=== PATIENT | male | born 1975 | race Caucasian/White ===

== ENCOUNTER 2020-04-02 07:38 | Emergency (ER) | payer OTHER ==
[~2020-04-02] VITALS: Ht 190.5 cm; Wt 99.8 kg
[2020-04-02] MEDS ORDERED: CYMBALTA60 MG PO (07:55)
[2020-04-02] MEDS ORDERED: MIRTAZAPINE30 M1 PO (07:55)
[2020-04-02] MEDS ORDERED: GLIPIZIDE ER10 MG PO (07:56)
[2020-04-02] MEDS ORDERED: LIPITOR40 MG PO (07:56)
[2020-04-02] MEDS ORDERED: FENOFIBRATE145 MG PO (07:56)
[2020-04-02] MEDS ORDERED: MOBIC15 MG PO (07:57)
[2020-04-02] MEDS ORDERED: LISINOPRIL10 MG PO (07:57)
[2020-04-02] MEDS ORDERED: GLUCOPHAGE850 MG PO (07:57)
[2020-04-02] MEDS ORDERED: ALLER-CORT16.9 ML NAS (07:59)
[2020-04-02] MEDS ORDERED: ZITHROMAX250 MG PO (09:51)
== END 2020-04-02 11:22 | disposition home or self-care (01) ==
LOC: ED 07:38
DX: J18.9 Pneumonia, unspecified organism (principal); E83.42 Hypomagnesemia; Z20.828 Contact with and (suspected) exposure to other viral communicable diseases; E11.9 Type 2 diabetes mellitus without complications; I10 Essential (primary) hypertension; Z87.891 Personal history of nicotine dependence; Z79.899 Other long term (current) drug therapy; Z79.84 Long term (current) use of oral hypoglycemic drugs
CPT/HCPCS: 71045; 71260; 80053; 83605; 83735; 85025; 99285-25; J0696; J1815; J3475; J7030; Q9967